=== PATIENT | male | born 1960 | race Caucasian/White ===

== ENCOUNTER 2017-02-07 17:07 | Emergency (ER) | payer MEDICARE ==
[2017-02-07] MEDS ORDERED: PROPARACAINE HCL OPTH 15ML BTL OPTH ONE (17:53)
--- NOTE | 2017-02-07 18:19 | Emergency Department Record ---
History of Present Illness - General Chief complaint: Eye Problem Stated complaint: FB IN L EYE Time Seen by Provider: 02/07/17 18:03 Source: Patient Mode of Arrival: Ambulatory Limitations: No limitations - History of Present Illness Initial comments: 56 yo male presents with an injury to his left eye. He was riding his lawnmower in his [place] and ran into a tree branch. He has pain over the lateral aspect of the eye. No bleeding. No change in vision but he does have some tears that are clear. He feels light sensitive. He was wearing his glasses at the time of the injury. chief complaint: Eye injury Onset/Timin -: Hour(s) Onset Description: Sudden Place: Street/outdoors Eye Symptoms: Foreign body sensation Consistency: Constant Associated Symptoms: None Treatments Prior to Arrival: None - Related Data Visual acuity (L) = 20/: 30 Visual acuity (R) = 20/: 30 With correction: Yes Hx Tetanus Toxoid Vaccination: Yes Year of Tetanus Vaccination: unsure Home Medications Medication Instructions Recorded Confirmed Last Taken Aspirin Chewable 81 mg PO DAILY 08/29/14 02/07/17 02/07/17 Citalopram Hydrobromide [Celexa] 20 mg PO DAILY 08/29/14 02/07/17 02/07/17 Lorazepam [Ativan] 1 mg PO Q12H 08/29/14 02/07/17 02/07/17 Quetiapine Fumarate [Seroquel] 200 mg PO DAILY 08/29/14 02/07/17 02/07/17 Ranitidine HCl [Zantac] 150 mg PO DAILY PRN 08/29/14 02/07/17 02/07/17 Simvastatin [Zocor] 40 mg PO DAILY 08/29/14 02/07/17 02/07/17 Valacyclovir HCl [Valtrex] 500 mg PO DAILY 08/29/14 02/07/17 02/07/17 Albuterol Sulfate [Proair Hfa] 1 inh INH Q4H PRN 02/18/15 02/18/15 Unknown Fluticasone Propionate [Flovent] 1 puff IH BID PRN 02/18/15 02/07/17 02/07/17 Tamsulosin HCl [Flomax] 1 tab PO DAILY 02/07/17 02/07/17 02/07/17 Previous Rx's Medication Instructions Recorded Docusate Sodium [Colace] 100 mg PO QHS #20 cap 02/19/15 Allergies Allergy/AdvReac Type Severity Reaction Status Date / Time No Known Drug Allergies Allergy Verified 02/18/15 17:03 Travel Screening - Travel/Exposure Within Last 30 Days Have you traveled within the last 30 days?: No - Travel/Exposure Within Last Year Have you traveled outside the [place] in the last year?: No - Additonal Travel Details Have you been exposed to anyone with a communicable illness?: No - Travel Symptoms Symptom Screening: None Past Medical History - SOCIAL HISTORY Smoking Status: Never smoker Alcohol Use: None Drug Use: None - RESPIRATORY Hx Respiratory Disorders: Yes Comment:: Has inhalers for "lung issues." - CARDIOVASCULAR Hx Cardio Disorders: No - NEURO Hx Neuro Disorders: Yes Comment:: TBI - GI Hx GI Disorders: No - Hx Genitourinary Disorders: Yes Hx Prostate Problems: Yes - ENDOCRINE Hx Endocrine Disorders: No - MUSCULOSKELETAL Hx Musculoskeletal Disorders: No - PSYCH Hx Psych Problems: No - HEMATOLOGY/ONCOLOGY Hx Hematology/Oncology Disorders: No Family Medical History Any Significant Family History?: No Physical Exam - General General Appearance: Alert, Oriented x3, Cooperative, No acute distress Limitations: No limitations - Head Head exam: Normal inspection - Eye Eye exam: PERRL, Conjunctival injection (very mild lateral), EOMI. negative: Nystagmus, Periorbital swelling, Periorbital tenderness, Scleral icterus Visual acuity (L) = 20/: 30 Visual acuity (R) = 20/: 30 With correction: Yes Image of Eyes: 1 - stain uptake consistent with abrasion, 2 tiny round dark areas CW very small debris, AC is clear, no blood. No streaming of stain. FB is mobile within the abraded corneal but unable to remove with gentle sweeping with a Qtip , it is not fixed to the corneal but the looser abraded area - ENT ENT exam: Normal exam, Mucous membranes moist, Normal orophraynx Ear exam: Normal external inspection Nasal Exam: Normal inspection Mouth exam: Normal external inspection Teeth exam: Normal inspection Throat exam: Normal inspection - Neck Neck exam: Normal inspection - Cardiovascular Cardiovascular Exam: Regular rate - Rectal Rectal exam: Deferred - exam: Deferred - Extremities Extremities exam: Normal inspection - Neurological Neurological exam: Alert, Normal gait, Oriented X3. negative: Altered, Motor sensory deficit - Psychiatric Psychiatric exam: Normal affect, Normal mood - Skin Skin exam: Dry, Intact, Normal color, Warm Course Vital Signs 02/07/17 17:34 Temperature 98.3 F Pulse Rate 77 Respiratory 12 Rate Blood Pressure 136/97 Pulse Ox 96 - Reevaluation(s) Reevaluation #1: Visual Acuity 20/30 bilateral The patient has stain uptake lateral and inferior to the left pupil NO streaming of the stain. NO hyphema Clear anterior chamber Regular pupil Slit lamp: Stain uptake noted, slight injection on the left, AC is clear, under high magnification 2 tiny round darker objects visualized. 02/07/17 18:25 Reevaluation #2: I gently tried to remove the tiny debris It was adhered to the abraded area of the cornea 02/07/17 18:39 Reevaluation #3: I offered to call our carpet installation specialist machinery repair maintenance supervisor to ensure follow up. He declined. The patient has an eye doctor in [place] but unable to find his name or number for me to call The patient is comfortable and requests DC home to call his doctor tomorrow. There is no sign of globe penetration, the anterior chamber is clear, no changes in his vision, He will return or contact us if any changes in his condition.l He was provided antibiotic drops in the ED for home use until follow up 02/07/17 18:46 02/07/17 19:17 Reevaluation #4: Tetanus is up to date 02/07/17 19:22 Disposition Disposition: Discharge Clinical Impression: Corneal abrasion Qualifiers: Encounter type: initial encounter Laterality: left Qualified Code(s): S05.02XA - Injury of conjunctiva and corneal abrasion without foreign body, left eye, initial encounter Corneal foreign body Qualifiers: Encounter type: initial encounter Laterality: left Qualified Code(s): T15.02XA - Foreign body in cornea, left eye, initial encounter Disposition: Home, Self-Care Condition: (2) Stable Instructions: Corneal Abrasion (ED), Eye Foreign Body (ED) Additional Instructions: Call your doctor first thing in the morning to absolutely be seen tomorrow Return tonight if you have any changes in your symptoms or condition Use the antibiotic drops every 4 hours You must be seen tomorrow or return to the ER Forms: Patient Portal Access Time of Disposition: 18:49
[2017-02-07] MEDS ORDERED: OFLOXACIN 0.3% 5 ML OPTH SOLN OPTH ONE (18:24)
== END 2017-02-07 18:58 | disposition home or self-care (01) ==
LOC: ER 17:07
DX: T15.02XA Foreign body in cornea, left eye, initial encounter (principal); W22.8XXA Striking against or struck by other objects, initial encounter; Y93.H9 Activity, other involving exterior property and land maintenance, building and construction; Y92.410 Unspecified street and highway as the place of occurrence of the external cause
CPT/HCPCS: 65222; 99283

== ENCOUNTER 2019-05-06 11:59 | Emergency (ER) | payer MEDICARE ==
[2019-05-06] MEDS ORDERED: 0.9 % SODIUM CHLORIDE 1,000 ML BAG IV ONE (12:21)
[2019-05-06] MEDS ORDERED: KETOROLAC 30 MG/ML VIAL IVP ONE (12:21)
[2019-05-06 12:39] LABS: ABSOLUTE NEUTROPHIL COUNT 11.07; BASO % 0.3 % (0-6); GRAN % 78.1 % (47-80); HEMATOCRIT 46.9 % (42.0-52.0); LYMPH % 13.5 % (16-45); MEAN CELL VOLUME 88.7 fl (81-97); MEAN CORPUSCULAR HEMOGLOBIN 30.2 pg (27-33); MEAN CORPUSCULAR HGB CONC 34.1 g/dl (32-36); MEAN PLATELET VOLUME 11.2 fl (7.4-10.4); MONO % 7.1 % (0-9); PLATELET COUNT 271 K/uL (130-400); RED BLOOD COUNT 5.29 M/uL (4.40-5.70); RED CELL DISTRIBUTION WIDTH 13.6 % (11.5-14.5); WHITE BLOOD COUNT W/O DIFF 14.2 K/uL (4.2-12.2)
[2019-05-06 12:56] LABS: BLOOD UREA NITROGEN 14 mg/dL (8-23); EST GLOMERULAR FILTRATION RATE > 60 mL/min
[2019-05-06 12:57] LABS: LIPASE 32 U/L (13-60)
[2019-05-06 12:59] LABS: GLUCOSE,RANDOM 177 mg/dL (74-109)
[2019-05-06 13:01] LABS: ALT/SGPT 17 U/L (<41)
[2019-05-06 13:02] LABS: ALBUMIN 4.3 g/dL (4.0-5.0); ALKALINE PHOSPHATASE 87 U/L (40-129); AST/SGOT 12 U/L (10.0-50.0); BILIRUBIN,DIRECT < 0.2 mg/dL (0-0.3)
[2019-05-06 13:20] LABS: URINE APPEARANCE CLEAR; URINE BILIRUBIN NEGATIVE (NEGATIVE); URINE BLOOD NEGATIVE (NEGATIVE); URINE COLOR YELLOW; URINE KETONE NEGATIVE (NEGATIVE); URINE LEUKOCYTE ESTERASE NEGATIVE (NEGATIVE); URINE NITRITE NEGATIVE (NEGATIVE); URINE PROTEIN NEGATIVE (NEGATIVE); URINE UROBILINOGEN 0.2 E.U./dL (0.20 - 1.00)
--- NOTE | 2019-05-06 14:30 | Emergency Department Record ---
History of Present Illness - General Chief complaint: Male Urogenital Problem Stated complaint: TROUBLE URINATING/ FLANK PAIN Time Seen by Provider: 05/06/19 12:20 Source: Patient, RN notes reviewed Mode of Arrival: Ambulatory - History of Present Illness Initial comments: burning with urination and suprapubic pain and he had a cystoscopy done 4 days ago and the burning started 2 days ago and he said he wanted a aden and bladder scanner said 200 ml. patient given toradol and IV fluids and gave us a spontaneous urine of 350 ml. MD Complaint: Dysuria Onset/Timin -: Days(s) Location: Abdomen Radiation: None Severity scale (1-10): 10 Quality: Sharp Consistency: Constant Improves with: None Worsens with: Urination Other Reports: Urinary retention - Related Data Sexually active: No Previous Rx's Medication Instructions Recorded Ciprofloxacin HCl [Cipro] 500 mg PO Q12HR #30 tablet 05/06/19 Allergies Allergy/AdvReac Type Severity Reaction Status Date / Time No Known Drug Allergies Allergy Verified 02/18/15 17:03 Travel Screening - Travel/Exposure Within Last 30 Days Have you traveled within the last 30 days?: No Review of Systems Reviewed: No additional complaints except as noted below Constitutional: Reports: As per HPI. Denies: Chills, Fever, Malaise, Night sweats, Weakness, Weight change Eyes: Reports: As per HPI. Denies: Eye discharge, Eye pain, Photophobia, Vision change ENT: Reports: As per HPI. Denies: Congestion, Dental pain, Ear pain, Epistaxis, Hearing loss, Throat pain Respiratory: Reports: As per HPI. Denies: Cough, Dyspnea, Hemoptysis, Stridor, Wheezes Cardiovascular: Reports: As per HPI. Denies: Arrhythmia, Chest pain, Dyspnea on exertion, Edema, Murmurs, Orthopnea, Palpitations, Paroxysmal nocturnal dyspnea, Rheumatic Fever, Syncope Endocrine: Reports: As per HPI. Denies: Fatigue, Heat or cold intolerance, Polydipsia, Polyuria Gastrointestinal: Reports: As per HPI. Denies: Abdominal pain, Constipation, Diarrhea, Hematemesis, Hematochezia, Melena, Nausea, Vomiting Genitourinary: Reports: As per HPI. Denies: Dysuria, Frequency, Hematuria, Incontinence, Retention, Testicular pain, Testicular mass, Urgency Musculoskeletal: Reports: As per HPI. Denies: Arthralgia, Back pain, Gout, Joint swelling, Myalgia, Neck pain Skin: Reports: As per HPI. Denies: Bruising, Change in color, Change in hair/nails, Lesions, Pruritus, Rash Neurological: Reports: As per HPI. Denies: Abnormal gait, Confusion, Headache, Numbness, Paresthesias, Seizure, Tingling, Tremors, Vertigo, Weakness Psychiatric: Reports: As per HPI. Denies: Anxiety, Auditory hallucinations, Depression, Homicidal thoughts, Suicidal thoughts, Visual hallucinations Hematological/Lymphatic: Reports: As per HPI. Denies: Anemia, Blood Clots, Easy bleeding, Easy bruising, Swollen glands Past Medical History - SOCIAL HISTORY Smoking Status: Never smoker - RESPIRATORY Hx Respiratory Disorders: Yes Comment:: Has inhalers for "lung issues." - CARDIOVASCULAR Hx Cardio Disorders: No - NEURO Hx Neuro Disorders: Yes Comment:: TBI - GI Hx GI Disorders: No - Hx Genitourinary Disorders: Yes Hx Prostate Problems: Yes - ENDOCRINE Hx Endocrine Disorders: No - MUSCULOSKELETAL Hx Musculoskeletal Disorders: No - PSYCH Hx Psych Problems: No - HEMATOLOGY/ONCOLOGY Hx Hematology/Oncology Disorders: No Family Medical History Any Significant Family History?: No Physical Exam - General General Appearance: Alert, Oriented x3, Cooperative, No acute distress - Head Head exam: Normal inspection - Eye Eye exam: Normal appearance, PERRL Pupils: Normal accommodation - ENT ENT exam: Normal exam, Mucous membranes moist, Normal external ear exam, Normal orophraynx, TM's normal bilaterally Ear exam: Normal external inspection. negative: External canal tenderness Nasal Exam: Normal inspection. negative: Discharge, Sinus tenderness Mouth exam: Normal external inspection, Tongue normal Teeth exam: Normal inspection. negative: Dental caries Throat exam: Normal inspection. negative: Tonsillar erythema, Tonsillar exudate - Neck Neck exam: Normal inspection, Full ROM. negative: Tenderness - Respiratory Respiratory exam: Normal lung sounds bilaterally. negative: Respiratory distress - Cardiovascular Cardiovascular Exam: Regular rate, Normal rhythm, Normal heart sounds - GI/Abdominal GI/Abdominal exam: Soft, Normal bowel sounds. negative: Tenderness - Rectal Rectal exam: Deferred - exam: Deferred - Extremities Extremities exam: Normal inspection, Full ROM, Normal capillary refill. negative: Tenderness - Back Back exam: Reports: Normal inspection, Full ROM. Denies: Muscle spasm, Rash no kvng, Tenderness - Neurological Neurological exam: Alert, Normal gait, Oriented X3, Reflexes normal - Psychiatric Psychiatric exam: Normal affect, Normal mood - Skin Skin exam: Dry, Intact, Normal color, Warm Course Vital Signs 05/06/19 12:36 Temperature 97.9 F Pulse Rate 75 Respiratory 22 Rate Blood Pressure 131/97 Pulse Ox 95 - Reevaluation(s) Reevaluation #1: 05/06/19 14:42 pain feeling better Reevaluation #2: reviewed labs with patient 05/06/19 14:44 Medical Decision Making - Data Complexity MDM Data: Labs Ordered and/or Reviewed, X-Ray Ordered and/or Reviewed (prostate inflamation and incidental complex cyst of spleen similiar to 2015) - Lab Data Result diagrams: 05/06/19 12:30 05/06/19 12:30 Lab Results 05/06/19 05/06/19 05/06/19 Range/Units 12:30 12:30 13:10 WBC 14.2 H (4.2-12.2) K/uL RBC 5.29 (4.40-5.70) M/uL Hgb 16.0 (14.0-18.0) gm/dl Hct 46.9 (42.0-52.0) % MCV 88.7 (81-97) fl MCH 30.2 (27-33) pg MCHC 34.1 (32-36) g/dl RDW 13.6 (11.5-14.5) % Plt Count 271 (130-400) K/uL MPV 11.2 H (7.4-10.4) fl Gran % 78.1 (47-80) % Lymphocytes % 13.5 L (16-45) % Monocytes % 7.1 (0-9) % Eosinophils % 1.0 (0-6) % Basophils % 0.3 (0-6) % Absolute Neutrophils 11.07 Sodium 135 L (136-145) mmol/L Potassium 3.5 (3.4-4.5) mmol/L Chloride 97 L (98-107) mmol/L Carbon Dioxide 23.0 (22-29) mmol/L Anion Gap 15.0 (7-16) BUN 14 (8-23) mg/dL Creatinine 1.0 (0.7-1.2) mg/dL Estimated GFR > 60 mL/min Random Glucose 177 H (74-109) mg/dL Calcium 9.3 (8.8-10.2) mg/dL Total Bilirubin 0.90 (0.2-1.0) mg/dL Direct Bilirubin < 0.2 (0-0.3) mg/dL AST 12 (10.0-50.0) U/L ALT 17 (<41) U/L Alkaline Phosphatase 87 (40-129) U/L Total Protein 7.0 (6.6-8.7) g/dL Albumin 4.3 (4.0-5.0) g/dL Lipase 32 (13-60) U/L Urine Color Yellow Urine Appearance Clear Urine pH 7.0 (5.0-8.0) Ur Specific Bowie <= 1.005 (1.002-1.030) Urine Protein Negative (NEGATIVE) Urine Glucose (UA) 250 mg/dl H (NEGATIVE) Urine Ketones Negative (NEGATIVE) Urine Blood Negative (NEGATIVE) Urine Nitrite Negative (NEGATIVE) Urine Bilirubin Negative (NEGATIVE) Urine Urobilinogen 0.2 (0.20 - 1.00) E.U./dL Ur Leukocyte Esterase Negative (NEGATIVE) Disposition Clinical Impression: Acute bacterial prostatitis Disposition: Home, Self-Care Condition: (1) Good Instructions: Prostatitis (ED), Benign Prostatic Hypertrophy (ED) Additional Instructions: increase folmax to twice a day cipro twice a day follow up with urology in 1-5 days tylenol 2 pills three times a day Prescriptions: Ciprofloxacin HCl [Cipro] 500 mg PO Q12HR #30 tablet Forms: Patient Portal Access Time of Disposition: 14:43 Quality - Quality Measures Quality Measures: N/A - Blood Pressure Screening Does Patient Have Any of the Following: No, Active Dx of HTN Blood Pressure Classification: Hypertensive Reading Systolic Measurement: 131 Diastolic Measurement: 97 Screening for High Blood Pressure: Patient Exclusion, Hx of HTN [G9744]
[2019-05-06] MEDS ORDERED: PHENAZOPYRIDINE HCL 95 MG TABLET PO ONE (14:34)
--- NOTE | 2019-05-08 05:16 | CT SCAN REPORT ---
DATE: 05/06/2019 at 1334. EXAM: CT OF THE ABDOMEN AND PELVIS WITHOUT CONTRAST. HISTORY: SUPRAPUBIC PAIN. TECHNIQUE: Thin-collimation helical CT examination of the abdomen and pelvis was performed without oral or intravenous contrast administration. Lack of oral and intravenous contrast utilization limits evaluation of the bowel and solid viscera, respectively. COMPARISON: CT of the abdomen and pelvis with contrast dated 02/18/2015. FINDINGS: There is minimal linear scarring versus atelectasis within the anterior lung bases. The visualized lung bases are otherwise clear. No pleural or pericardial effusion. The heart is not enlarged. There is atherosclerotic calcification of the visualized proximal to mid right coronary artery. The liver, pancreas, and adrenal glands are normal in appearance. There is a lobulated fluid density mass redemonstrated within the spleen superiorly. This measures 6.3 x 7.5 x 8.4 cm. On the prior examination this measured 6.0 x 7.0 x 6.0 cm. On the prior examination, this was characterized as a complex splenic cyst. A calcified granuloma is again noted in the anterior mid to lower spleen. The gallbladder is unremarkable, and no biliary ductal dilatation is seen. The kidneys are normal in size and position, and they are smoothly marginated. No nephrolithiasis identified. A klv-[id number]-characterize hypodense lesion is noted in the posteromedial upper pole of the left kidney measuring 9.0 mm. This is hypodense on the prior examination and is likely a benign cyst. No other renal mass identified. No obstructive uropathy. No intra-abdominal nor retroperitoneal lymphadenopathy. There is minimal atherosclerosis without aneurysmal dilatation of the abdominal aorta nor iliac arteries. The prostate gland is markedly enlarged causing elevation of the bladder floor. It measures approximately 7.6 x 5.6 x 7.0 cm. There is minor stranding of the adjacent peripancreatic fat. Prostatitis superimposed on prostate enlargement would be difficult to exclude. No definite focal urinary bladder abnormality is seen, though given the deformity of the bladder floor, a small urothelial lesion at this level would be difficult to exclude. No pelvic adenopathy. Fat density prominence is noted in each inguinal canal consistent with spermatic cord lipomas or fat within small inguinal hernia sacs. No gross bowel dilatation nor bowel wall thickening. The appendix is not visualized consistent with prior appendectomy. There is mild diverticulosis of the left colon without evidence of diverticulitis. No free intraperitoneal fluid nor free intraperitoneal air. A small fat-filled umbilical hernia is redemonstrated. No lytic or blastic bone lesion. IMPRESSION: 1. MARKED ENLARGEMENT OF THE PROSTATE GLAND CAUSING ELEVATION OF THE URINARY BLADDER FLOOR. MILD HAZINESS OF FAT ADJACENT TO THE PROSTATE RAISES THE POSSIBILITY OF SUPERIMPOSED PROSTATITIS. NO DEFINITE FOCAL MASS SEEN. 2. NO DEFINITE FOCAL URINARY BLADDER ABNORMALITY, THOUGH GIVEN THE DEFORMITY OF ITS FLOOR BY THE ENLARGED PROSTATE, A SMALL UROTHELIAL LESION AT THIS LEVEL WOULD BE DIFFICULT TO EXCLUDE. 3. [id number]-BXUCS-MO-CHARACTERIZE HYPODENSE LESION IN THE LEFT KIDNEY IS NONSPECIFIC BUT LIKELY A CYST. 4. COLONIC DIVERTICULOSIS WITHOUT EVIDENCE OF DIVERTICULITIS. 5. LARGE CYSTIC MASS WITHIN THE SPLEEN. THIS HAS BEEN CHARACTERIZED A COMPLEX SPLENIC CYST ON THE 2015 EXAMINATION. IT HAS MILDLY ENLARGED IN THE INTERVAL. 6. RIGHT CORONARY ARTERY CALCIFICATION. Job Number: [id number] MTDD
== END 2019-05-06 14:50 | disposition home or self-care (01) ==
LOC: ER 11:59
DX: N41.0 Acute prostatitis (principal); D73.4 Cyst of spleen; I10 Essential (primary) hypertension
CPT/HCPCS: 74176; 80048; 80076; 81003; 83690; 85025; 96374; 99284; J1885; J7030

== ENCOUNTER 2019-05-07 04:02 | Emergency (ER) | payer MEDICARE ==
[2019-05-07] MEDS ORDERED: LIDOCAINE UROJECT 10 ML APPL MM ONE (04:26)
--- NOTE | 2019-05-07 04:30 | Emergency Department Record ---
History of Present Illness - General Chief complaint: Male Urogenital Problem Stated complaint: UNABLE TO URINATE Time Seen by Provider: 05/07/19 04:10 Source: Patient Mode of Arrival: Ambulatory Limitations: No limitations - History of Present Illness Initial comments: The patient is here due to having difficulty urinating for 3-4 days. He had a Cystoscopy last week by a [facility] and then about 3 days ago started having dysuria. It got worse yesterday and he was seen in the ER and had a normal UA and BUN and CR. The patient has had persistent bladder spasms and suprapubic pain and now he again feels he is unable to urinate. He did have a CT scan that did demonstrate a large prostate which was most likely indicative of Prostatitis. MD Complaint: Dysuria Onset/Timin -: Days(s) Location: Abdomen Radiation: None Quality: Aching Consistency: Constant Improves with: None Worsens with: None Reports: Urinary retention - Related Data Sexually active: No Previous Rx's Medication Instructions Recorded Ciprofloxacin HCl [Cipro] 500 mg PO Q12HR #30 tablet 05/06/19 Allergies Allergy/AdvReac Type Severity Reaction Status Date / Time No Known Drug Allergies Allergy Verified 05/07/19 04:10 Travel Screening - Travel/Exposure Within Last 30 Days Have you traveled within the last 30 days?: No - Travel/Exposure Within Last Year Have you traveled outside the [place] in the last year?: No - Additonal Travel Details Have you been exposed to anyone with a communicable illness?: No - Travel Symptoms Symptom Screening: None Review of Systems Constitutional: Denies: Chills, Fever Eyes: Denies: Eye discharge ENT: Denies: Congestion Respiratory: Denies: Cough, Dyspnea Past Medical History - SOCIAL HISTORY Smoking Status: Never smoker Alcohol Use: None Drug Use: None - RESPIRATORY Hx Respiratory Disorders: Yes Comment:: Has inhalers for "lung issues." - CARDIOVASCULAR Hx Cardio Disorders: No - NEURO Hx Neuro Disorders: Yes Comment:: TBI - GI Hx GI Disorders: No - Hx Genitourinary Disorders: Yes Hx Prostate Problems: Yes - ENDOCRINE Hx Endocrine Disorders: No - MUSCULOSKELETAL Hx Musculoskeletal Disorders: No - PSYCH Hx Psych Problems: No - HEMATOLOGY/ONCOLOGY Hx Hematology/Oncology Disorders: No Family Medical History Any Significant Family History?: No Physical Exam - General General Appearance: Alert, Cooperative, Mild distress Limitations: Other (The patient does not have a lot of insight into his recent urological condition.) - Head Head exam: Atraumatic, Normocephalic - Neck Neck exam: Normal inspection, Full ROM. negative: Tenderness - Respiratory Respiratory exam: Normal lung sounds bilaterally. negative: Respiratory distress - Cardiovascular Cardiovascular Exam: Regular rate, Normal rhythm, Normal heart sounds - GI/Abdominal GI/Abdominal exam: Soft, Normal bowel sounds, Tenderness (There is suprapubic tenderness.). negative: Rebound, Rigid - Extremities Extremities exam: Normal inspection, Full ROM, Normal capillary refill. negative: Tenderness Course Vital Signs 05/07/19 04:09 Temperature 97.9 F Pulse Rate [ 76 Pulse Ox Probe] Respiratory 24 Rate Blood Pressure 138/101 [Left Arm] Pulse Ox 96 - Reevaluation(s) Reevaluation #1: The patient did have a Donohue catheter placed with the return of 350mls of clear urine. The patient's bladder spasm pain did resolve. I did discuss the issues with him at length and told him the catheter needs to come out no later than Tuesday. The patient is to call his Urologist for recheck in 1-2 days and also discuss the Prostate findings on CT. 05/07/19 04:46 Disposition Disposition: Discharge Clinical Impression: Retention of urine Disposition: Home, Self-Care Condition: (2) Stable Instructions: Urinary Retention in Men (ED) Additional Instructions: Please see your Urologist in 1-2 days for recheck and catheter removal. Do NOT have the catheter in for longer than 2 days. Please continue your medicines and discuss the markedly abnormal prostate on CT with the Urologist. Forms: Patient Portal Access Time of Disposition: 04:49 Quality - Quality Measures Quality Measures: N/A - Blood Pressure Screening View Details: Yes Does Patient Have Any of the Following: No Blood Pressure Classification: Hypertensive Reading Systolic Measurement: 138 Diastolic Measurement: 101 Screening for High Blood Pressure: < First Hypertensive BP, F/U Documented > [G8950] First Hypertensive Follow-up Interventions: Referral to alternative/primary care provider.
[2019-05-07 04:35] LABS: URINE APPEARANCE CLEAR; URINE BILIRUBIN NEGATIVE (NEGATIVE); URINE BLOOD NEGATIVE (NEGATIVE); URINE COLOR YELLOW; URINE GLUCOSE (UA) NEGATIVE (NEGATIVE); URINE KETONE NEGATIVE (NEGATIVE); URINE LEUKOCYTE ESTERASE NEGATIVE (NEGATIVE); URINE NITRITE NEGATIVE (NEGATIVE); URINE PROTEIN NEGATIVE (NEGATIVE); URINE UROBILINOGEN 0.2 E.U./dL (0.20 - 1.00)
[2019-05-07] MEDS ORDERED: ACETAMINOPHEN 325 MG TAB PO ONE (04:44)
== END 2019-05-07 04:57 | disposition home or self-care (01) ==
LOC: ER 04:02
DX: N40.1 Benign prostatic hyperplasia with lower urinary tract symptoms (principal); R33.8 Other retention of urine
CPT/HCPCS: 81003; 99282; 99283